=== PATIENT | female | born 1965 | race Caucasian/White ===

== ENCOUNTER 2018-01-22 11:41 | Outpatient (RCR) | payer BC ==
--- NOTE | 2018-01-23 08:51 | RADIOLOGY IMAGING REPORT ---
FACILITY: [facility] - [place] PATIENT NAME: Marcella Langley : 1965 MR: [id number] V: [id number] EXAM DATE: ORDERING PHYSICIAN: DEB ALLEN TECHNOLOGIST: Location: [facility] [place] Patient: Marcella Langley : 1965 Visit/Account:[id number] Date of Sevice: 01/23/2018 EXAMINATION: Limited abdomen ultrasound HISTORY: Right upper quadrant abdominal pain COMPARISON: None FINDINGS: Pancreas: Pancreas is uniformly echogenic with lobulated margins. No peripancreatic fluid is seen. Liver: Liver is normal size with smooth margins, and mild, diffuse hyperechogenicity. Normal directi onal blood flow in the main portal vein by duplex Doppler ultrasound. Bile ducts: Intrahepatic and extrahepatic bile ducts are normal caliber. Common bile duct measures 3 mm diameter in the sienna hepatis. Gallbladder: Gallbladder is contracted. Gallbladder wall thickness is normal. Gallbladder contains n o sludge or stones. Right Kidney: Normal size with preserved parenchymal thickness and appropriate echogenicity. Right k idney measures 10 cm length. There is no hydronephrosis. Abdominal aorta and IVC: Abdominal aorta and IVC are normal caliber. Both are patent. Ascites: None IMPRESSION: 1. Diffuse liver hyperechogenicity likely secondary to fatty infiltration. 2. 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 Report Dictated By: Leni Craven MD at 01/23/2018 8:42 AM Report E-Signed By: Leni Craven MD at 01/23/2018 8:45 AM WSN:[id number]
[2018-02-06] MEDS ORDERED: LACT1CAP6 PO (15:37)
[2018-02-06] MEDS ORDERED: UBIQ100C3 PO (15:37)
[2018-02-06] MEDS ORDERED: CHOL500025 PO (15:37)
[2018-02-06] MEDS ORDERED: OMEG-11 PO (15:37)
[2018-02-06] MEDS ORDERED: CRAN200C5 PO (15:37)
[2018-02-06] MEDS ORDERED: BIOT1CAP PO (15:37)
[2018-02-06] MEDS ORDERED: ASCO-182 PO (15:37)
[2018-02-06] MEDS ORDERED: POTA99TA6 PO (15:37)
[2018-02-06] MEDS ORDERED: CYAN50008 PEG (15:37)
[2018-02-06] MEDS ORDERED: PANT40TA65 PO (15:37)
[2018-02-06] MEDS ORDERED: ATOR40TA24 PO (15:37)
== END 2018-01-23 18:00 | disposition home or self-care (01) ==
LOC: EDSTATUS 11:41 → US 11:41
PROVIDERS: ATTEND Physician Assistant
DX: R19.7 Diarrhea, unspecified (principal); R10.11 Right upper quadrant pain
CPT/HCPCS: 76705; 82274; 83630; 87045; 87324; 87449

== ENCOUNTER → 2018-01-22 | Outpatient (REF) | payer BC ==
[~2018-01-22] MED LIST: BLAC20TA6 PO; FERR240T23 PO; FIBER; LEVO25TA56 PO; MULT-1319 PO; MULT-820 PO; OMEP-218 PO; PREG25PO9 MC; [UNRECOGNIZED DRUG - REMARK]
== END ==
LOC: ZZSENDIN 10:14
PROVIDERS: ATTEND Physician Assistant
DX: R19.7 Diarrhea, unspecified (principal)
CPT/HCPCS: 83690; 85651

== ENCOUNTER → 2018-07-24 | Outpatient (CLI) | payer BC ==
[~2018-07-24] MED LIST changes: +ASCO-182 PO; +ATOR40TA24 PO; +BIOT1CAP PO; +CHOL500025 PO; +CRAN200C5 PO; +CYAN50008 PEG; +LACT1CAP6 PO; +OMEG-11 PO; +PANT40TA65 PO; +POTA99TA6 PO; +UBIQ100C3 PO
--- NOTE | 2018-07-26 08:23 | RADIOLOGY IMAGING REPORT ---
FACILITY: [facility] PATIENT NAME: AKIN BEGUM : [id number] MR: [id number] V: [id number] EXAM DATE: ORDERING PHYSICIAN: DEB ALLEN TECHNOLOGIST: Natalee Long PROCEDURE:BILATERAL DIGITAL SCREENING MAMMOGRAM WITH CAD ASSISTED INTERPRETATION & 3D TOMOSYNTHESIS COMPARISON:Prior mammograms 07/23/17, 07/11/16, 07/09/15, 07/06/14, 07/03/13, 07/02/12. INDICATIONS:SCREENING FINDINGS: A small amount of fibroglandular tissue is seen throughout the breasts. The parenchymal pattern has remained stable allowing for difference in mammographic technique & patient positioning. There is no evidence of malignant appearing mass, malignant appearing calcifications or other secondary sign of malignancy in either breast. DIAGNOSTIC CATEGORY 1--NEGATIVE. RECOMMENDATIONS: ROUTINE MAMMOGRAM AND CLINICAL EVALUATION. IMPRESSION: BIRADS 1: Negative. No significant abnormality is seen. Dictated by: Michelle Ordoñez M.D. on 07/24/2018 at 14:52 Transcribed by: MARLON on 07/24/2018 at 14:58 Approved by: Michelle Ordoñez M.D. on 07/26/2018 at 8:22 [facility]
== END ==
LOC: MAMO 00:46
PROVIDERS: ATTEND Physician Assistant
DX: Z12.31 Encounter for screening mammogram for malignant neoplasm of breast (principal)
CPT/HCPCS: 77063; 77067